=== PATIENT | female | born 1975 | race Caucasian/White ===

== ENCOUNTER 2018-12-21 12:06 | Day surgery (SDC) | payer BC ==
[~2018-12-21 12:06] MED LIST: LIDOCAINE 2% (SDV) 5 ML INJ; PROPOFOL 200 MG INJ
[2018-12-21] MEDS: BUPIVACAINE 0.5% (SDV) 30 ML INJ (14:28)
[2018-12-21] MEDS ORDERED: ROPIVACAINE 0.2% 20 ML VIAL (14:40)
[2018-12-21] MEDS ORDERED: MIDAZOLAM 1 MG/ML 2 ML INJ (14:40)
[2018-12-21] MEDS ORDERED: FENTAnyl 50 MCG/ML VIAL (15:04)
[2018-12-21] MEDS ORDERED: CEFAZOLIN 1 GM INJ (15:06)
[2018-12-21] MEDS ORDERED: FAMOTIDINE 20 MG INJ (15:08)
[2018-12-21] MEDS ORDERED: ONDANSETRON 4 MG INJ ×2 (15:08→17:10)
[2018-12-21] MEDS ORDERED: DEXAMETHASONE 4 MG/ML 5 ML INJ (15:08)
[2018-12-21] MEDS: ONDANSETRON 4 MG INJ IV (17:07)
[2018-12-22] MEDS ORDERED: CLINDAMYCIN 900 MG/D5W (PMX) 50 ML IVPB (07:00)
[2018-12-22] MEDS ORDERED: LACTATED RINGER'S 1,000 ML IV* (07:00)
== END 2018-12-21 18:05 | disposition home or self-care (01) ==
LOC: SDS 12:06
DX: M19.042 Primary osteoarthritis, left hand (principal); M19.142 Post-traumatic osteoarthritis, left hand; M20.012 Mallet finger of left finger(s); I10 Essential (primary) hypertension; E78.5 Hyperlipidemia, unspecified; F41.9 Anxiety disorder, unspecified; E66.01 Morbid (severe) obesity due to excess calories; G25.81 Restless legs syndrome
CPT/HCPCS: 26860; 73140

== ENCOUNTER 2019-07-26 05:54 | Observation (INO) | payer BC ==
[2019-07-26] MEDS ORDERED: PROPOFOL 20 ML (06:46)
[2019-07-26] MEDS ORDERED: CEFAZOLIN 1 GM INJ (06:46)
[2019-07-26] MEDS ORDERED: LIDOCAINE 2% (SDV) 5 ML INJ (06:46)
[2019-07-26] MEDS ORDERED: MIDAZOLAM 1 MG/ML 2 ML INJ (06:46)
[2019-07-26] MEDS ORDERED: FENTAnyl 50 MCG/ML VIAL ×2 (06:46→09:02)
[2019-07-26] MEDS ORDERED: NEOMYC/POLYMYX/BACIT 30 GM OINT (06:49)
[2019-07-26] MEDS: LACTATED RINGER'S 1,000 ML IV (07:02)
[2019-07-26] MEDS ORDERED: CLINDAMYCIN 900 MG (PMX) 50 ML IVPB (07:28)
[2019-07-26] MEDS ORDERED: FAMOTIDINE 20 MG INJ (07:30)
[2019-07-26] MEDS ORDERED: METOCLOPRAMIDE 10 MG INJ (07:30)
[2019-07-26] MEDS ORDERED: ONDANSETRON 4 MG INJ (07:30)
[2019-07-26] MEDS ORDERED: DEXAMETHASONE 4 MG/ML 5 ML INJ (07:30)
[2019-07-26] MEDS ORDERED: LABETALOL HCL 20MG INJ IV (08:00)
[2019-07-26] MEDS ORDERED: hydrALAzine 20 MG INJ IV (08:00)
[2019-07-26] MEDS ORDERED: MEPERIDINE 25 MG INJ IV (08:00)
[2019-07-26] MEDS ORDERED: ALBUTEROL 0.083% (NEB) 2.5 MG/3 ML AMP HHN (08:00)
[2019-07-26] MEDS ORDERED: OXYCODONE/ACETAMINOPHEN (5/325) TAB PO (08:00)
[2019-07-26] MEDS ORDERED: ONDANSETRON 4 MG INJ IV ×2 (08:00→14:00)
[2019-07-26] MEDS ORDERED: HYDROmorphONE 1 MG/5 ML IV SYRINGE IV (08:00)
[2019-07-26] MEDS ORDERED: ROCURONIUM 50 MG INJ (08:14)
[2019-07-26] MEDS ORDERED: SUCCINYLCHOLINE CHLORIDE 100 MG/5 ML SYG IV (08:14)
[2019-07-26] MEDS ORDERED: SUGAMMADEX SODIUM 200 MG/2 ML VIAL IV (08:14)
[2019-07-26] MEDS: ROPIVACAINE 0.5 % 30 ML VIAL (08:50)
[2019-07-26] MEDS: HYDROmorphONE 1 MG/5 ML IV SYRINGE IV ×2 (09:37→09:54)
[2019-07-26] MEDS ORDERED: morphine 2 MG INJ IV (10:00)
[2019-07-26] MEDS: KETOROLAC 30 MG INJ IV (10:00)
[2019-07-26] MEDS ORDERED: RACEPINEPHRINE 2.25%(NEB) 0.5 ML AMP (10:16)
[2019-07-26] MEDS: RACEPINEPHRINE 2.25%(NEB) 0.5 ML AMP HHN (10:41)
[2019-07-26] MEDS: OXYCODONE/ACETAMINOPHEN (5/325) TAB PO (11:45)
[2019-07-26] MEDS: HYDROmorphONE 0.5 MG/0.5 ML SYG IV (13:22)
[2019-07-26] MEDS: GABAPENTIN 300 MG CAP PO ×2 (13:40→23:07)
[2019-07-26] MEDS ORDERED: oxyCODONE 5 MG TAB PO (14:00)
[2019-07-26] MEDS ORDERED: DIPHENHYDRAMINE 25 MG CAP PO (14:00)
[2019-07-26] MEDS: HYDROmorphONE 1 MG/ML SYG IV ×2 (14:05→23:09)
[2019-07-26] MEDS: CLINDAMYCIN 300 MG CAP PO ×2 (16:57→23:24)
[2019-07-26] MEDS ORDERED: ROPIVACAINE 0.2% 20 ML VIAL (17:52)
[2019-07-26] MEDS ORDERED: NON-FORMULARY/PATIENT OWN MED (Levocetirizine Dihydrochloride (Xyzal) 5 MG) PO (21:00)
[2019-07-26] MEDS ORDERED: NON-FORMULARY/PATIENT OWN MED (Ergocalciferol (Vitamin D2) (Vitamin D2) 2,000 UNIT) PO (21:00)
[2019-07-26] MEDS ORDERED: NON-FORMULARY/PATIENT OWN MED (Lovastatin* 20 MG) PO (21:00)
[2019-07-26] MEDS ORDERED: NON-FORMULARY/PATIENT OWN MED (Omeprazole* 20 MG) PO (21:00)
[2019-07-26] MEDS: OXYBUTYNIN (XL) 5 MG TAB PO (23:06)
[2019-07-26] MEDS: ATORVASTATIN 10 MG TAB PO (23:06)
[2019-07-26] MEDS: CITALOPRAM 20 MG TAB PO (23:06)
[2019-07-26] MEDS: DOCUSATE SODIUM 100 MG CAP PO (23:07)
[2019-07-26] MEDS: AMLODIPINE 5 MG TAB PO (23:07)
[2019-07-26] MEDS: RANITIDINE 150 MG TAB PO (23:07)
[2019-07-26] MEDS: LORATADINE 10 MG TAB PO (23:24)
[2019-07-26] MEDS: PRAMIPEXOLE 0.25 MG TAB PO (23:27)
[2019-07-27] MEDS: HYDROmorphONE 1 MG/ML SYG IV ×4 (02:09→12:58)
[2019-07-27] MEDS: CLINDAMYCIN 300 MG CAP PO (06:25)
[2019-07-27] MEDS: PANTOPRAZOLE (EC) 40 MG TAB PO (06:25)
[2019-07-27] MEDS: LEVOTHYROXINE 88 MCG TAB PO (06:25)
[2019-07-27] MEDS: KETOROLAC 30 MG INJ IV (09:07)
[2019-07-27] MEDS: CHOLECALCIFEROL 2,000 UNIT CAP PO (09:09)
[2019-07-27] MEDS: PRAMIPEXOLE 0.25 MG TAB PO (09:09)
[2019-07-27] MEDS: GABAPENTIN 300 MG CAP PO ×2 (09:09→13:29)
[2019-07-27] MEDS ORDERED: ATORVASTATIN 10 MG TAB PO (22:00)
== END 2019-07-27 16:35 | disposition home or self-care (01) ==
LOC: SDS 05:54 → REC 13:42 → 2NE 14:35
DX: S83.242A Other tear of medial meniscus, current injury, left knee, initial encounter (principal); X58.XXXA Exposure to other specified factors, initial encounter
CPT/HCPCS: 29881; 71045; 82306; 93005; 94664; 97116; 97161; 97530